=== PATIENT | male | born 1980 | race Caucasian/White ===

== ENCOUNTER 2016-04-29 13:08 | Emergency (ER) | payer OTHER ==
[~2016-04-29] VITALS: Ht 177.8 cm; Wt 71.0 kg
[~2016-04-29 13:08] MED LIST: CEPH-443 PO; ELIM TOP
[2016-04-29 13:11] VITALS: Ht 177.8 cm; Wt 71.0 kg
[2016-04-29 17:56] LABS: URINE BLOOD (Dip) POC 1+ (NEGATIVE)
--- NOTE | 2016-04-29 18:15 | RADRPT ---
PROCEDURE: US Scrotum. CLINICAL INDICATION: Trauma and pain TECHNIQUE: Multiple sonographic images of the scrotal region were obtained utilizing a linear arra y transducer with grayscale and color-flow and a Doppler imaging. The images were reviewed on a high -resolution PACS workstation. COMPARISON: No prior studies are available for comparison. FINDINGS: The right testicle is well visualized and has a normal echotexture. No focal areas of abnormal echog enicity are visualized. The right testicle measures measures 4.8 x 2.2 x 3.2 cm cm. There is normal color-flow. The right epididymis is visualized and unremarkable in appearance. There is normal color -flow. The left testicle is well visualized and has a normal echotexture. No focal areas abnormal echogenic ity are visualized. The left testicle measures measures 3.9 x 2.0 x 3.2 cm. There is normal color-fl ow. The left epididymis is visualized and is unremarkable in appearance. There is normal color-flow. The scrotal wall is unremarkable. No swelling or edema is seen. IMPRESSION: 1. Unremarkable testicular ultrasound. RPTAT: [facility] .Fernando Webb MD, MD Date Time Electronically viewed and signed by .Fernando Webb MD, MD on 04/29/2016 18:15 .M/
[2016-04-29 19:11] LABS: OPIATES Negative (NEGATIVE)
[2016-04-29 19:12] LABS: BARBITURATES Negative (NEGATIVE); BENZODIAZEPINES Negative (NEGATIVE); CANNABINOIDS Positive (NEGATIVE); COCAINE Negative (NEGATIVE)
[2016-04-29] MEDS ORDERED: CEFTRIAXONE 250 MG INJ IM ONE (19:30)
[2016-04-29] MEDS ORDERED: AZITHROMYCIN 250 MG TAB PO ONE (19:30)
[2016-04-29] MEDS ORDERED: CIPR500T4 PO (19:51)
[2016-04-29 20:01] VITALS: BP 122/81; PULSE 88; RESP 18; TEMP 98.5
--- NOTE | 2016-04-29 20:03 | ERD ---
ER Documentation Chief Complaint Date/Time DATE: 04/29/16 TIME: 19:57 Chief Complaint GENITAL DISCHARGE, PAINFUL URINATION HPI 36-year-old male with no significant past medical history presents to the ED complaining of having purulent discharge in his penis that started 3 days ago. States that he was sexually active, 1 day ago. Reports that he has a burning sensation when he urinates. States he has slight scrotal pain. Denies any fever, chills, flank pain, abdominal pain, nausea, vomiting, chest pain, SOB. States that he smokes 4-5 cigarettes per day. ROS All systems reviewed and are negative except as per history of present illness. Medications Home Meds Active Scripts Ciprofloxacin Hcl* (Ciprofloxacin Hcl*) 500 Mg Tablet, 500 MG PO BID for 10 Days , TAB Prov:DWAYNE GARCIA PA-C 04/29/16 Cephalexin* (Keflex*) 500 Mg Capsule, 500 MG PO Q8, #21 CAP Prov:JOSE RIVERA DO 03/14/16 Permethrin* (Elimite*) 5% Cr, 1 APPLIC TOP ONCE, #1 TUB Prov:JOSE RIVERA DO 03/14/16 Allergies Allergies: Coded Allergies: No Known Allergy (Unverified , 03/14/16) PMhx/Soc Medical and Surgical Hx: pt denies Medical Hx, pt denies Surgical Hx Hx Alcohol Use: Yes Hx Substance Use: Yes Hx Tobacco Use: Yes (1/2 PACK/DAY) Smoking Status: Current every day smoker Physical Exam Vitals Vital Signs Date Time Temp Pulse Resp B/P Pulse Ox O2 Delivery O2 Flow Rate FiO2 04/29/16 20:01 98.5 88 18 122/81 98 Room Air 04/29/16 13:11 98.5 97 18 115/81 98 Physical Exam Const: [id number], well-nourished. In no acute distress. Head: Atraumatic, normocephalic Eyes: Normal Conjunctiva without injection. No purulent discharge. ENT: Normal external ear, nose. Moist oropharynx without tonsillar exudates. Non -erythematous pharynx. Uvula midline. No drooling. No trismus. Neck: No cervical midline tenderness. Full range of motion. No meningismus. No cervical lymphadenopathy. No JVD. Resp: Clear to auscultation bilaterally. No wheezing, rhonchi, rales, or crackles. No accessory muscle use. No retractions. Cardio: Regular rate and rhythm. No murmurs, rubs or gallops. Abd: Soft, nontender, non distended. Normal bowel sounds. No palpable masses. No rebound tenderness. No guarding. Negative McBurney's point. Negative psoas sign. Negative obturator sign. : Penile discharge noted at the tip of the urethral orifice. No paraphimosis. No phimosis. No hernias. Slight scrotal tenderness to left testicle. No erythema or edema. Skin: No petechiae or rashes Back: No midline tenderness. No CVA tenderness. Ext: No cyanosis, or edema. Neur: Awake and alert. Normal gait. Normal coordination. Psych: Normal Mood and Affect Results 24 hrs Laboratory Tests Test 04/29/16 17:52 04/29/16 17:56 Chlamydia trachomatis RNA (TMA) NOT DETECTED Chlamydia/GC Comment SEE NOTE Neisseria gonorrhoeae RNA (TMA) DETECTED Urine Amphetamines Screen POSITIVE Urine Barbiturates Negative Urine Benzodiazepines Screen Negative Urine Cannabinoids Positive Urine Cocaine Screen Negative Urine Opiates Screen Negative Bedside Urine Blood 1+ Bedside Urine Glucose (UA) Negative Bedside Urine Ketones (LAB) Negative Bedside Urine Leukocyte Esterase (L 2+ Bedside Urine Nitrite (LAB) Negative Bedside Urine Protein (LAB) 2+ Bedside Urine pH (LAB) 7.0 Current Medications Medications (Trade) Dose Ordered Sig/Baljit Route PRN Reason Start Time Stop Time Status Last Admin Dose Admin Azithromycin (Zithromax) 1,000 mg ONCE ONCE PO 04/29/16 19:30 04/29/16 19:31 DC 04/29/16 19:28 Ceftriaxone Sodium (Rocephin) 250 mg ONCE ONCE IM 04/29/16 19:30 04/29/16 19:31 DC 04/29/16 19:29 Procedures/MDM 36-year-old male with no significant past medical history presents the ED complaining of having penile discharge that started 3 days ago as well as dysuria and slight scrotal pain. Patient is afebrile and nontoxic-appearing. Patient has normal vital signs. At this time since patient did have tenderness to palpation of the scrotum, a scrotal ultrasound was ordered to further evaluate patient. Urine: 2+ leukocyte esterase, no nitrite, no hematuria. PROCEDURE: US Scrotum. CLINICAL INDICATION: Trauma and pain TECHNIQUE: Multiple sonographic images of the scrotal region were obtained utilizing a linear array transducer with grayscale and color-flow and a Doppler imaging. The images were reviewed on a high-resolution PACS workstation. COMPARISON: No prior studies are available for comparison. FINDINGS: The right testicle is well visualized and has a normal echotexture. No focal areas of abnormal echogenicity are visualized. The right testicle measures measures 4.8 x 2.2 x 3.2 cm cm. There is normal color-flow. The right epididymis is visualized and unremarkable in appearance. There is normal color- flow. The left testicle is well visualized and has a normal echotexture. No focal areas abnormal echogenicity are visualized. The left testicle measures measures 3.9 x 2.0 x 3.2 cm. There is normal color-flow. The left epididymis is visualized and is unremarkable in appearance. There is normal color-flow. The scrotal wall is unremarkable. No swelling or edema is seen. IMPRESSION: 1. Unremarkable testicular ultrasound. Patient likely has urethritis (GC) in addition or without urinary tract infection based on his workup here in the ED as well as the clinical examination. A urine culture, urine drug screen be sent out as well as a GC urine test. Patient wanted to be treated prophylactically here in the ED. Patient was treated with ceftriaxone 250 mg IM and Zithromax 1 g with no complications. There is low suspicion for testicular torsion, epididymitis, hydrocele, varicocele, acute abdomen, appendicitis, hernias, paraphimosis, phimosis, or other emergent conditions. Discharge medications: Ciprofloxacin Follow up with primary care physician in 1-2 days. Instructed patient to return to the ED sooner for any worsening symptoms. Patient's questions were answered. Patient understood and agreed with discharge plan. Patient discharged stable. Departure Diagnosis: Primary Impression: STD exposure Condition: Stable Patient Instructions: Urethritis in Men, Understanding Urinary Tract Infections (UTIs), If You Think You Have an STD Referrals: COMMUNITY CLINICS YOU HAVE RECEIVED A MEDICAL SCREENING EXAM AND THE RESULTS INDICATE THAT YOU DO NOT HAVE A CONDITION THAT REQUIRES URGENT TREATMENT IN THE EMERGENCY DEPARTMENT. FURTHER EVALUATION AND TREATMENT OF YOUR CONDITION CAN WAIT UNTIL YOU ARE SEEN IN YOUR DOCTORS OFFICE WITHIN THE NEXT 1-2 DAYS. IT IS YOUR RESPONSIBILITY TO MAKE AN APPOINTMENT FOR FOLOW-UP CARE. IF YOU HAVE A PRIMARY DOCTOR --you should call your primary doctor and schedule an appointment IF YOU DO NOT HAVE A PRIMARY DOCTOR YOU CAN CALL OUR PHYSICIAN REFERRAL HOTLINE AT IF YOU CAN NOT AFFORD TO SEE A PHYSICIAN YOU CAN CHOSE FROM THE FOLLOWING [facility] [address] [facility] [address] [facility] [address] [facility] [address] [facility] [address] [facility]. [facility] [address] [facility]. [facility] YOU HAVE RECEIVED A MEDICAL SCREENING EXAM AND THE RESULTS INDICATE THAT YOU DO NOT HAVE A CONDITION THAT REQUIRES URGENT TREATMENT IN THE EMERGENCY DEPARTMENT. FURTHER EVALUATION AND TREATMENT OF YOUR CONDITION CAN WAIT UNTIL YOU ARE SEEN IN YOUR DOCTORS OFFICE WITHIN THE NEXT 1-2 DAYS. IT IS YOUR RESPONSIBILITY TO MAKE AN APPOINTMENT FOR FOLOW-UP CARE. IF YOU HAVE A PRIMARY DOCTOR --you should call your primary doctor and schedule and appointment IF YOU DO NOT HAVE A PRIMARY DOCTOR YOU CAN CALL OUR PHYSICIAN REFERRAL HOTLINE AT . IF YOU CAN NOT AFFORD TO SEE A PHYSICIAN YOU CAN CHOSE FROM THE FOLLOWING [facility]: [facility] [address] [place] [address] [facility] [address] [place] [address] [facility] [address] [place] [address] [facility] URGENT CARE/SPECIALTIES Additional Instructions: FOLLOW UP WITH YOUR PRIMARY CARE PHYSICIAN TOMORROW. Return to this facility if you are not improving as expected. DWAYNE GARCIA PA-C Apr 29, 2016 20:03
== END 2016-04-29 20:02 | disposition home or self-care (01) ==
LOC: FTE 13:08
DX: Z20.2 Contact with and (suspected) exposure to infections with a predominantly sexual mode of transmission (principal); F17.210 Nicotine dependence, cigarettes, uncomplicated
CPT/HCPCS: 76870; 80307; 81003; 87086; 87591; 96372; J0696; Z7502; Z7610